=== PATIENT | male | born 1940 | race Caucasian/White ===

== ENCOUNTER 2019-10-10 13:02 | Inpatient (IN) | payer MEDICARE, OTHER ==
[~2019-10-10] VITALS: Ht 188 cm; Wt 87.4 kg
[~2019-10-10 13:02] MED LIST: ALDA50TA2 PO; AMLO10TA PO; AMLO10TA5 PO; CINN500C9 PO; FISH1CAP37 PO; HYDR-2541 PO; LIPI20TA PO; LISI-538 PO; METF500T13 PO; METO1TAB32 PO; METO1TAB63 PO; NACCAP PO; SAW500CA9 PO; SERT-138 PO; UBID100C6 PO; VITA200015 PO; VITA500T17 PO; VITAMIN C PO; ZYLO300T6 PO; [UNRECOGNIZED DRUG - CODE] PO
[2019-10-10 14:00] LABS: BASO % 0.5 % (0.0-1.0); EOS # 0.1 10^3/uL (0.0-0.5); EOS % 0.8 % (0.0-3.0); HEMATOCRIT 41.6 % (42.0-52.0); HEMOGLOBIN 13.9 g/dl (13.5-17.5); LYMPH # 1.1 10^3/uL (1.5-5.0); LYMPH % 16.7 % (24.0-44.0); MEAN CORPUSCULAR HGB CONC 33.4 g/dl (32.0-36.5); MEAN CORPUSCULAR VOLUME 92.9 fl (80.0-96.0); MONO # 0.7 10^3/uL (0.0-0.8); MONO % 10.3 % (0.0-5.0); NEUTROPHILS # 4.6 10^3/uL (1.5-8.5); NEUTROPHILS % 71.5 % (36.0-66.0); PLATELET COUNT, AUTOMATED 121 10^3/uL (150-450); RED BLOOD COUNT 4.48 10^6/uL (4.30-6.10); WHITE BLOOD COUNT 6.4 10^3/uL (4.0-10.0)
[2019-10-10 14:11] LABS: INR 1.3; PROTHROMBIN TIME 15.9 SECONDS (11.8-14.0)
[2019-10-10 14:12] LABS: PARTIAL THROMBOPLASTIN TIME 35.8 SECONDS (25.0-38.4)
--- NOTE | 2019-10-10 14:34 | REP ---
CHEST, TWO VIEWS: Two views of the chest are performed. There is cardiomegaly. There is small bilateral pleural effusions with some mild bibasilar atelectasis/infiltrate. There is calcification and tortuosity of the thoracic aorta. The mediastinal silhouette is otherwise unremarkable. There are degenerative changes of the spine. IMPRESSION: Moderate cardiomegaly. Small bilateral pleural effusions with mild adjacent bibasilar atelectasis/infiltrate. Electronically Signed by Buzz Hensley MD 10/10/2019 07:53 P
[2019-10-10 14:36] LABS: ALBUMIN 3.7 GM/DL (3.2-5.2); ALT/SGPT 33 U/L (12-78); BILIRUBIN,DIRECT 0.6 MG/DL (0.0-0.2); BILIRUBIN,TOTAL 1.9 MG/DL (0.2-1.0); BLOOD UREA NITROGEN 27 MG/DL (7-18); CARBON DIOXIDE LEVEL 30 MEQ/L (21-32); CHLORIDE LEVEL 105 MEQ/L (98-107); CK-MB VALUE MASS 2.6 NG/ML (<3.6); CPK CREATINE PHOSPHOKINASE 87 U/L (39-308); CREATININE FOR GFR 1.19 MG/DL (0.70-1.30); FREE T4 1.36 NG/DL (0.76-1.46); GLOMERULAR FILTRATION RATE > 60.0 (>42); GLUCOSE, FASTING 114 MG/DL (70-100); LIPASE 83 U/L (73-393); MB/CK RELATIVE INDEX 2.99 (< OR =4); NT-PRO BNP 10490 PG/ML (<450); SODIUM LEVEL 143 MEQ/L (136-145); TOTAL PROTEIN 6.8 GM/DL (6.4-8.2); TROPONIN I 0.69 NG/ML (< 0.10)
[2019-10-10] MEDS ORDERED: ASPI-1 PO (14:51)
[2019-10-10] MEDS ORDERED: CVS50CAP PO (14:51)
[2019-10-10] MEDS ORDERED: MAGN400C PO (14:51)
--- NOTE | 2019-10-10 15:04 | REP ---
Bilateral lower extremity Duplex Doppler venous ultrasound: Real time compression and duplex Doppler interrogation of the bilateral lower extremity deep venous system is performed. Bilaterally, the common femoral, superficial femoral and popliteal veins are fully compressible with transducer pressure and demonstrate normal spontaneous and phasic flow, without evidence of deep venous thrombosis. Impression: No evidence of deep venous thrombosis of the bilateral lower extremity femoral popliteal venous system. A right popliteal cyst measures 3.5 x 1.4 x 2.1 cm. Electronically Signed by Buzz Hensley MD 10/10/2019 02:55 P
[2019-10-10 15:30] LABS: MAGNESIUM LEVEL 2.6 MG/DL (1.8-2.4)
[2019-10-10] MEDS ORDERED: FUROSEMIDE 40MG/4ML VIAL (J1940) IV ONE (15:30)
[2019-10-10] MEDS ORDERED: GLUCOSE 4GM CHEW TABLET PO PRN (16:00)
[2019-10-10] MEDS ORDERED: DEXTROSE 50% 50 ML SYRINGE IV PRN (16:00)
[2019-10-10] MEDS ORDERED: GLUCAGON INJ 1MG VIAL SC PRN (16:00)
[2019-10-10] MEDS ORDERED: ZYLO300T6 PO (16:09)
[2019-10-10] MEDS ORDERED: DOCU-129 PO (16:09)
[2019-10-10] MEDS ORDERED: AMLO10TA5 PO (16:09)
[2019-10-10] MEDS ORDERED: HYDR25TAB PO (16:09)
[2019-10-10] MEDS ORDERED: COEN100T PO (16:09)
[2019-10-10] MEDS ORDERED: CINN500C15 PO (16:09)
[2019-10-10] MEDS ORDERED: SERT-138 PO (16:09)
[2019-10-10] MEDS ORDERED: MAGN400T2 PO (16:09)
[2019-10-10] MEDS ORDERED: SM S160C PO (16:09)
[2019-10-10] MEDS ORDERED: METF-839 PO ×2 (16:09)
[2019-10-10] MEDS ORDERED: ASCO500T PO (16:09)
[2019-10-10] MEDS ORDERED: FISH1000 PO (16:09)
--- NOTE | 2019-10-10 16:20 | HPEPDOC ---
General Date of Admission Oct 10, 2019 at 15:48 Date of Service: Oct 10, 2019 Chief Complaint The patient is a 78-year-old male Who presented to the hospital with complaints of shortness of breath History of Present Illness Patient is a 78-year-old male with a PMHx of HTN, A. fib (not on anticoagulation), Bradycardia (suspected to be 2/2 sick sinus syndrome, refused PM in 2014), DM2, DLP, Hx of CVA, Depression, and Brain abscess () and Gout who presented to the hospital with worsening shortness of breath. Patient reports that hes been experiencing year, shortness of breath. However, has worsened after he has run out of medication refills. Patient reports that he lives alone and does not have the ability to care for himself appropriately. Patient has reported worsening lower extremity swelling with some skin breakdown that has occurred. Patient denies any chest pain or palpitations. He denies any significant cough, any recent fevers or chills. Patient has not had a history of a heart attack or stent placements in the past. Patient was advised that in 2014, he would require a pacemaker for sick sinus syndrome. However, he had refused the procedure. At that time. Currently patient denies nausea, vomiting, abdominal pain. He does report some constipation, reports difficulty with urination but denies any burning. Patient reports his appetite is poor and is unaware of any changes in his weight. Home Medications Scheduled Allopurinol (Zyloprim) 300 Mg Tablet, 300 MG PO DAILY, (Reported) Amlodipine Besylate (Amlodipine Besylate) 10 Mg Tablet, 10 MG PO DAILY, (Reported) Ascorbic Acid (Ascorbic Acid) 500 Mg Tablet, 500 MG PO BID, (Reported) Cinnamon Bark (Cinnamon) 500 Mg Capsule, 500 MG PO BID, (Reported) Hydrochlorothiazide (Hydrochlorothiazide) 25 Mg Tablet, 25 MG PO DAILY, (Reported) Magnesium Oxide (Magnesium Oxide) 400 Mg Tablet, 400 MG PO BID, (Reported) Metformin HCl (Metformin HCl) 500 Mg Tablet, 1,000 MG PO BID, (Reported) AM/HS Metformin HCl (Metformin HCl) 500 Mg Tablet, 500 MG PO DAILY, (Reported) NOONTIME [place]-3 Fatty Acids/Fish Oil (Fish Oil 1,000 mg Capsule) 1 Each Capsule, 1,000 MG PO BID, (Reported) [place] (Saw Thurston) 160 Mg Capsule, 160 MG PO DAILY, (Reported) Sertraline HCl (Sertraline HCl) 100 Mg Tablet, 100 MG PO DAILY, (Reported) Ubidecarenone (Coenzyme Q10) 100 Mg Tablet, 100 MG PO DAILY, (Reported) Scheduled PRN Docusate Sodium (Stool Softener) 100 Mg Capsule, 100 MG PO BID PRN for CONSTIPATION, (Reported) Allergies Coded Allergies: No Known Allergies (Unverified , 07/20/14) Past Medical History Medical History HTN, A. fib (not on anticoagulation), Bradycardia (suspected to be 2/2 sick sinus syndrome, refused PM in 2014), DM2, DLP, Hx of CVA, Depression, and Brain abscess () and Gout Surgical History Patient has reported brain surgery 4 in the Appendectomy Family History - Family history was reviewed and is currently noncontributory to current hospitalization Social History - Denies the use of alcohol, tobacco or illicit drugs - Denies recent travel or sick contacts - [place] - Patient reports that he is unable to care for himself reports that he does not have access to a bathroom - Occupation; retired [employer] Review of Systems Other systems 10 point review of systems complete, all negative otherwise stated in HPI Vital Signs - Vitals: BP 140/60, HR 46, RR 20, Sat 98%RA, Temp 98.8F - General: Lying in bed, No acute distress, Speaking in full sentences, AAOx3 - HEENT: NC, AT, PERRLA, EOMI - CVS: Bradycardic, +S1S2 - Lungs: Fair air entry bilaterally, No appreciable wheezing / rales / rhonchi - Abdomen: Soft, Non-distended, Non-tender - Extremities: 1-2+ pitting edema on top of chronic venous stasis skin changes, No calf tenderness - Neuro: No focal motor or sensory deficit - Skin: No visible rashes Laboratory Data Labs 24H Laboratory Tests 2 10/10/19 13:42: 10/10/19 13:46: 10/10/19 13:47: Immature Granulocyte % (Auto) 0.2, Neutrophils (%) (Auto) 71.5H, Lymphocytes (%) (Auto) 16.7L, Monocytes (%) (Auto) 10.3H, Eosinophils (%) (Auto) 0.8, Basophils (%) (Auto) 0.5, Neutrophils # (Auto) 4.6, Lymphocytes # (Auto) 1.1L, Monocytes # (Auto) 0.7, Eosinophils # (Auto) 0.1, Basophils # (Auto) 0.0, Nucleated Red Blood Cells % (auto) 0.0, Prothrombin Time 15.9H, Prothromb Time International Ratio 1.30, Activated Partial Thromboplast Time 35.8, Anion Gap 8, Glomerular Filtration Rate > 60.0, Calcium Level 9.0, Magnesium Level 2.6H, Total Bilirubin 1.9H, Direct Bilirubin 0.6H, Aspartate Amino Transf (AST/SGOT) 15, Alanine Aminotransferase (ALT/SGPT) 33, Alkaline Phosphatase 124H, Total Creatine Kinase 87, Creatine Kinase MB 2.6, Creatine Kinase MB Relative Index 2.99, Troponin I 0.69H, SN-Xsg-O-Type Natriuretic Peptide 39914X, Total Protein 6.8, Albumin 3.7, Albumin/Globulin Ratio 1.2, Lipase 83, Thyroid Stimulating Hormone (TSH) 1.980, Free Thyroxine 1.36 CBC/BMP Laboratory Tests 10/10/19 13:47 Plan / VTE VTE Prophylaxis Ordered?: Yes Plan Plan Worsening shortness of breath - likely 2/2 decompensated systolic and diastolic CHF - Patient reports that hes unable to care for himself at home - Patient does not have a primary care provider and has been going to urgent care for medication refills - Has reported progressive shortness of breath over the duration of 1 year - Physical does reveal evidence of fluid overload - [place] [address] - ECHO from 2015: EF 40%, impaired diastolic function, moderate pulmonary HTN, - CXR 10/09: Moderate cardiomegaly. Small bilateral pleural effusions with mild adjacent bibasilar atelectasis/infiltrate. - Vascular US 10/09: No evidence of deep venous thrombosis of the bilateral lower extremity femoral popliteal venous system. A right popliteal cyst measures 3.5 x 1.4 x 2.1 cm. - Will get repeat ECHO - c/w Strict ins/outs, daily weights, fluid restriction of 2000 cc - Will give single dose of Furosemide 40 IV - Will start entresto - Consulted cardiology, Dr. Chambers Symptomatic bradycardia - Patient denies any chest pain or palpitations - Patient does appear to be bradycardic with heart rate between 40s and 60s - EKG was reviewed and does reveal an irregular heart rhythm, ventricular rate of 61; evidence of T-wave inversions in AvL, V1,2,3 - Troponin on admission of 0.69; will trend troponins - Will get ECHO - Discussed with cardiology, Dr. Chambers, about potential pacemaker placement; w ill be on consultation Thrombocytopenia - Platelet count at baseline does appear to be low based on medical records from 2014 - No evidence of bleeding HTN - BP well controlled - Will start entresto - Hold HCTZ, Amlodipine A. fib - Currently rate is bradycardic - Has not been on rate control medications as an outpatient - Not on full anticoagulation in the past for reported fall risk DM2 - Will check A1c - Will start ISS DLP - c/w Coenzyme Q10 Hx of CVA - Currently not on any antiplatelet therapy or statins Depression - c/w Sertraline Brain abscess () Gout - c/w Allopurinol DVT prophylaxis - Will start Heparin ALEAH GARCIA MD Oct 10, 2019 16:20
[2019-10-10 16:21] LABS: CHOLESTEROL LEVEL 130 MG/DL (<200); CHOLESTEROL RISK RATIO 3.095 (<5); HDL CHOLESTEROL 42 MG/DL (>40); LDL CHOLESTEROL 78 MG/DL (<100); NON-HDL-C 88 MG/DL; TRIGLYCERIDES LEVEL 48 MG/DL (<150)
[2019-10-10 16:25] LABS: HEMOGLOBIN A1c 6.7 %
[2019-10-10] MEDS: HumaLOG INSULIN (NovoLOG) PER UNIT SC SCH (17:30)
[2019-10-10 17:35] LABS: CK-MB VALUE MASS 2.4 NG/ML (<3.6); MB/CK RELATIVE INDEX 3.33 (< OR =4); TROPONIN I 0.61 NG/ML (< 0.10)
[2019-10-10 17:45] VITALS: BP 164/86
[2019-10-10] MEDS ORDERED: SLF 3 ML SYR IV PRN (18:00)
--- NOTE | 2019-10-10 18:11 | ECGEPIP ---
[facility] - ED Test Date: 2019-10-10 Pat Name: KATRIN PEDROZA Department: Room: - Gender: Male [employer]: JPatrice : 1940 Requested By: PENNY Ellis Order Number: [id number] Reading MD: Milvia Cedeno Measurements Intervals [place] Rate: 61 P: WI: 0 QRS: 116 QRSD: 198 T: -69 QT: 557 QTc: 564 Interpretive Statements SUSPECT ATRIAL FIBRILLATION ABERRANT CONDUCTION/PVC MARKED RIGHT AXIS DEVIATION RIGHT BUNDLE BRANCH BLOCK MARKED ST DEPRESSION, CONSIDER SUBENDOCARDIAL INJURY Electronically Signed on 10-10-2019 18:10:41 EDT by Milvia Cedeno
[2019-10-10 20:00] VITALS: BP 134/79
[2019-10-10 20:45] VITALS: BP 112/60
[2019-10-10] MEDS ORDERED: HumaLOG INSULIN (NovoLOG) PER UNIT SC SCH (21:00)
[2019-10-10] MEDS ORDERED: OMEGA-3 1000MG CAPSULE PO SCH (21:00)
[2019-10-10] MEDS: HEPARIN SOD (PORCINE) 5000UNITS/ML VIAL (J1644 PER 1000UNITS) SC SCH (21:11)
[2019-10-10] MEDS: SLF 3 ML SYR IV SCH (21:12)
[2019-10-10] MEDS: ENTRESTO 24-26MG TABLET (SACUBITRIL/VALSARTAN) PO SCH (21:49)
[2019-10-10 22:27] LABS: CK-MB VALUE MASS 2.1 NG/ML (<3.6); MB/CK RELATIVE INDEX 2.53 (< OR =4); TROPONIN I 0.64 NG/ML (< 0.10)
--- NOTE | 2019-10-10 23:41 | ECHO ---
DATE OF PROCEDURE: 10/10/2019 REFERRING PHYSICIAN: Dr. Michelle Cabrales INDICATION: Localized edema, unspecified. HEIGHT: 187 cm WEIGHT: 88 kg 2D MEASUREMENTS: Ventricular septum: 1.05 cm Posterior wall: 1.21 cm Left ventricle diastole: 7.55 cm Aortic annulus: 2.2 cm Aortic root: 4.4 cm Left atrium: 4.7 cm DOPPLER MEASUREMENTS: Moderate aortic regurgitation. No aortic stenosis. Aortic valve velocity: 86.2 cm/s LVOT velocity: 80.9 cm/s LVOT VTI: 16.6 cm Moderate mitral regurgitation. No mitral stenosis. Moderate tricuspid regurgitation. Estimated right ventricle systolic pressure: At least 67 mmHg assuming a pressure of at least 20 mmHg. No pulmonic regurgitation. DESCRIPTION: Rhythm was atrial fibrillation with a slow ventricular response and appearance of left bundle branch block-type morphology. This was a 2D, M-mode, color flow Doppler, and pulse wave Doppler examination and included mitral annular tissue Doppler. CONCLUSIONS: 1. Severely dilated left ventricle with eccentric left ventricle hypertrophy (mild increased thickness of the ventricular septum). Severe global LV hypokinesis and paradoxical septal motion. Severe reduction in overall LV systolic function. Left ventricular ejection fraction (LVEF) 15% by visual assessment. Appearance of low cardiac output. 2. Appearance of a mildly dilated right ventricle with right ventricle hypertrophy and moderately severe global hypokinesis of right ventricle contraction and right ventricular (RV) systolic function. Mild right atrial dilatation. 3. Mild aortic valve sclerosis of a 3-cusp aortic valve. Moderate aortic regurgitation. 4. Structurally normal appearing mitral leaflets. Moderate tricuspid regurgitation. 5. Severe left atrial dilatation. 6. Mild dilatation of the aortic root at the level of the sinuses of Valsalva (4.4 cm). 7. Bilateral pleural effusions. 8. Structurally normal appearing tricuspid leaflets. Moderate tricuspid regurgitation. Severe elevation of estimated right ventricle systolic pressure (at least 67 mmHg). 9. 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 Suggestive of elevated central venous pressure of at least 20 mmHg.
[2019-10-11] VITALS: BP 120/64
[2019-10-11] MEDS: FUROSEMIDE 40MG/4ML VIAL (J1940) IV SCH ×5 (00:21→15:10)
[2019-10-11 04:00] VITALS: BP 135/71
[2019-10-11] MEDS: HEPARIN SOD (PORCINE) 5000UNITS/ML VIAL (J1644 PER 1000UNITS) SC SCH ×2 (05:17→14:17)
[2019-10-11] MEDS: SLF 3 ML SYR IV SCH ×2 (05:18→14:17)
[2019-10-11 05:59] LABS: BASO % 0.4 % (0.0-1.0); EOS # 0.1 10^3/uL (0.0-0.5); EOS % 1.8 % (0.0-3.0); HEMATOCRIT 43.5 % (42.0-52.0); HEMOGLOBIN 14.2 g/dl (13.5-17.5); LYMPH # 1.6 10^3/uL (1.5-5.0); LYMPH % 21.7 % (24.0-44.0); MEAN CORPUSCULAR HEMOGLOBIN 30.1 pg (27.0-33.0); MEAN CORPUSCULAR HGB CONC 32.6 g/dl (32.0-36.5); MEAN CORPUSCULAR VOLUME 92.2 fl (80.0-96.0); MONO # 0.8 10^3/uL (0.0-0.8); MONO % 10.5 % (0.0-5.0); NEUTROPHILS # 4.7 10^3/uL (1.5-8.5); NEUTROPHILS % 65.2 % (36.0-66.0); PLATELET COUNT, AUTOMATED 136 10^3/uL (150-450); RED BLOOD COUNT 4.72 10^6/uL (4.30-6.10); WHITE BLOOD COUNT 7.2 10^3/uL (4.0-10.0)
[2019-10-11 06:27] LABS: BLOOD UREA NITROGEN 24 MG/DL (7-18); CALCIUM LEVEL 8.9 MG/DL (8.8-10.2); CARBON DIOXIDE LEVEL 33 MEQ/L (21-32); CHLORIDE LEVEL 102 MEQ/L (98-107); CREATININE FOR GFR 1.22 MG/DL (0.70-1.30); GLOMERULAR FILTRATION RATE > 60.0 (>42); GLUCOSE, FASTING 124 MG/DL (70-100); MAGNESIUM LEVEL 2.1 MG/DL (1.8-2.4); POTASSIUM SERUM 3.6 MEQ/L (3.5-5.1); SODIUM LEVEL 141 MEQ/L (136-145)
[2019-10-11 08:00] VITALS: BP 123/60
[2019-10-11] MEDS ORDERED: allopurinoL 300 MG TAB PO SCH (09:00)
[2019-10-11] MEDS ORDERED: SERTRALINE 100 MG TAB PO SCH (09:00)
[2019-10-11] MEDS ORDERED: SPIRONOLACTONE 25 MG TAB PO SCH (09:00)
[2019-10-11] MEDS ORDERED: CO-ENZYME Q10 50 MG CAP PO SCH (09:00)
[2019-10-11] MEDS ORDERED: ASPIRIN 81 MG ENTERIC TAB PO SCH (09:00)
[2019-10-11] MEDS: ENTRESTO 24-26MG TABLET (SACUBITRIL/VALSARTAN) PO SCH (09:16)
[2019-10-11] MEDS: HumaLOG INSULIN (NovoLOG) PER UNIT SC SCH ×2 (09:17→12:00)
--- NOTE | 2019-10-11 10:58 | IPNPDOC ---
Text Note Date of Service The patient was seen on 10/11/19. NOTE Subjective: Patient is a 78-year-old male with a PMHx of HTN, A. fib (not on anticoagulation), Bradycardia (suspected to be 2/2 sick sinus syndrome, refused PM in 2014), DM2, DLP, Hx of CVA, Depression, and Brain abscess () and Gout who presented to the hospital with worsening shortness of breath. Patient reports that hes been experiencing year, shortness of breath. However, has worsened after he has run out of medication refills. Patient reports that he lives alone and does not have the ability to care for himself appropriately. Patient has reported worsening lower extremity swelling with some skin breakdown that has occurred. Patient was admitted to the hospitalist service for further evaluation and treatment. Patient was seen and examined at the bedside. Patient reports that his lower extremity swelling has been better. He denies any chest pain, palpitations, nausea, vomiting, abdominal pain, diarrhea or burning with urination. Objective: Vitals (See below) General: Lying in bed, appears comfortable, AAOx3 HEENT: NC, AT CVS: Bradycardic, +S1S2 Lungs: Fair air entry b/l, no appreciable wheezing / rhonchi / crackles Abdomen: Soft, ND, NT Extremities: 1+ pitting edema on chronic venous stasis changes, - Calf tenderness Assessment and plan: Worsening shortness of breath - likely 2/2 decompensated systolic (EF 15%) and diastolic CHF 2/2 end stage CHF - Patient reports that his breathing is relatively fine at rest - Physical does reveal evidence of fluid overload; lower extremity do reveal some improvement of edema - [place] [address] - ECHO 10/09: EF 15%, moderate AR, moderate TR, elevated CVP - CXR 10/09: Moderate cardiomegaly. Small bilateral pleural effusions with mild adjacent bibasilar atelectasis/infiltrate. - Vascular US 10/09: No evidence of deep venous thrombosis of the bilateral lower extremity femoral popliteal venous system. A right popliteal cyst measures 3.5 x 1.4 x 2.1 cm. - Will get repeat ECHO - c/w Strict ins/outs, daily weights, fluid restriction of 2000 cc; has remained negative fluid balance - c/w diuresis to optimize volume status - Discussed with Dr. Chambers; patient is not a candidate to receive a pacemaker and is likely an end-stage congestive heart failure - Consulted Cardiology; Dr. Sadler Bradycardia - likely 2/2 SSS; not a candidate for PM - Patient does not report any chest pain or palpitations - EKG was reviewed and does reveal an irregular heart rhythm, ventricular rate of 61; evidence of T-wave inversions in AvL, V1,2,3 - Troponins have remained stable - Discussed with Dr. Chambers; patient is not a candidate to receive a pacemaker and is likely an end-stage congestive heart failure - Discussed code status with patient; patient has voiced that he will be DNR / DNI; MOLST form updated to reflect this change - Palliative care consult placed Thrombocytopenia - Platelet count at baseline does appear to be low based on medical records from 2014 - No evidence of bleeding HTN - BP well controlled - c/w entresto - s/p HCTZ, Amlodipine A. fib - Currently rate is bradycardic - Has not been on rate control medications as an outpatient - Not on full anticoagulation in the past for reported fall risk - Will start ASA 81 DM2 - A1c of 6.7 - c/w ISS DLP - c/w Coenzyme Q10 Hx of CVA - Currently not on any antiplatelet therapy or statins Depression - c/w Sertraline Brain abscess () Gout - c/w Allopurinol DVT prophylaxis - c/w Heparin VS,Fishbone, I+O VS, Fishbone, I+O Laboratory Tests 10/10/19 13:47 10/11/19 05:31 Vital Signs Date Time Temp Pulse Resp B/P (MAP) Pulse Ox O2 Delivery O2 Flow Rate FiO2 10/11/19 08:00 97.0 50 18 123/60 (81) 96 Room Air I&O- Last 24 Hours up to 6 AM 10/11/19 06:00 Intake Total 370 ml Output Total 2850 ml Balance -2480 ml ALEAH GARCIA MD Oct 11, 2019 10:58
[2019-10-11 12:00] VITALS: BP 128/68
[2019-10-11] MEDS ORDERED: ENTR1TAB PO (14:23)
[2019-10-11] MEDS ORDERED: ALDA25TA2 PO (14:23)
[2019-10-11] MEDS ORDERED: HEPA500011 SC (14:23)
[2019-10-11] MEDS ORDERED: FURO80VL IV (14:23)
[2019-10-11] MEDS ORDERED: ASPI81TAEC PO (14:23)
[2019-10-11] MEDS ORDERED: INSUHUMDS SC ×2 (14:23)
--- NOTE | 2019-10-11 14:30 | DS.PDOC ---
Discharge Summary General Date of Admission Oct 10, 2019 at 15:48 Date of Discharge 10/11/2019 Discharge Summary PROCEDURES PERFORMED DURING STAY: [None]. ADMITTING DIAGNOSES / DISCHARGE DIAGNOSES: Worsening shortness of breath - likely 2/2 decompensated systolic (EF 15%) and diastolic CHF 2/2 end stage CHF Bradycardia - likely 2/2 SSS Thrombocytopenia HTN A. fib DM2 DLP Hx of CVA Depression Brain abscess () Gout DVT prophylaxis COMPLICATIONS/CHIEF COMPLAINT: Shortness of breath HISTORY OF PRESENT ILLNESS: Patient is a 78-year-old male with a PMHx of HTN, A. fib (not on anticoagulation), Bradycardia (suspected to be 2/2 sick sinus syndrome, refused PM in 2014), DM2, DLP, Hx of CVA, Depression, and Brain abscess () and Gout who presented to the hospital with worsening shortness of breath. Patient reports that hes been experiencing year, shortness of breath. However, has worsened after he has run out of medication refills. Patient reports that he lives alone and does not have the ability to care for himself appropriately. Patient has reported worsening lower extremity swelling with some skin breakdown that has occurred. Patient was admitted to the hospitalist service for further evaluation and treatment. HOSPITAL COURSE: Worsening shortness of breath - likely 2/2 decompensated systolic (EF 15%) and diastolic CHF 2/2 end stage CHF - Patient reports that his breathing is relatively fine at rest - Physical does reveal evidence of fluid overload; lower extremity do reveal some improvement of edema - [place] [address] - ECHO 10/09: EF 15%, moderate AR, moderate TR, elevated CVP - CXR 10/09: Moderate cardiomegaly. Small bilateral pleural effusions with mild adjacent bibasilar atelectasis/infiltrate. - Vascular US 10/09: No evidence of deep venous thrombosis of the bilateral lower extremity femoral popliteal venous system. A right popliteal cyst measures 3.5 x 1.4 x 2.1 cm. - c/w Strict ins/outs, daily weights, fluid restriction of 2000 cc; has remained negative fluid balance (since admission -3485 net balance) - c/w diuresis to optimize volume status - After discussion of case with Dr. Sadler, Cardiology; patient be transferred to [facility] for cardiac evaluation and possible AICD/pacemaker placement Bradycardia - likely 2/2 SSS - Patient does not report any chest pain or palpitations - EKG was reviewed and does reveal an irregular heart rhythm, ventricular rate of 61; evidence of T-wave inversions in AvL, V1,2,3 - Troponins have remained stable - Discussed code status with patient; patient has voiced that he will be DNR / DNI; MOLST form updated to reflect this change - After discussion of case with Dr. Sadler, Cardiology; patient be transferred to [facility] for cardiac evaluation and possible AICD/pacemaker placement Thrombocytopenia - Platelet count at baseline does appear to be low based on medical records from 2014 - No evidence of bleeding HTN - BP well controlled - c/w Entresto - s/p HCTZ, Amlodipine A. fib - Currently rate is bradycardic / irregular - Has not been on rate control medications as an outpatient - Not on full anticoagulation in the past for reported fall risk - c/w ASA 81 DM2 - A1c of 6.7 - c/w ISS DLP - c/w Coenzyme Q10 Hx of CVA - Currently not on any antiplatelet therapy or statins Depression - c/w Sertraline Brain abscess () Gout - c/w Allopurinol DVT prophylaxis - c/w Heparin DISCHARGE MEDICATIONS: Please see below. ALLERGIES: Please see below. PHYSICAL EXAMINATION ON DISCHARGE: Vitals (See below) General: Lying in bed, appears comfortable, AAOx3 HEENT: NC, AT CVS: Bradycardic, +S1S2 Lungs: Fair air entry b/l, auscultation does not reveal evidence of crackles, wheezing or rhonchi Abdomen: Abdomen is soft without distention or tenderness Extremities: Lower extremity still reveal 1+ pitting edema on top of chronic venous stasis, - Calf tenderness LABORATORY DATA: Please see below. ACTIVITY: [As tolerated]. DISCHARGE PLAN / DISPOSITION: Transfer to [facility] in [place] for interventional cardiology evaluation Remain compliant with treatment plan and medications Return to the ER if you experience any problems DISCHARGE CONDITION: [Stable]. TIME SPENT ON DISCHARGE: 35 minutes. Vital Signs/I&Os Vital Signs Date Time Temp Pulse Resp B/P (MAP) Pulse Ox O2 Delivery O2 Flow Rate FiO2 10/11/19 12:00 97.0 55 20 128/68 (88) 100 Room Air I&O- Last 24 Hours up to 6 AM 10/11/19 06:00 Intake Total 370 ml Output Total 2850 ml Balance -2480 ml Laboratory Data Labs 24H Laboratory Tests 2 10/10/19 16:49: Total Creatine Kinase 72, Creatine Kinase MB 2.4, Creatine Kinase MB Relative Index 3.33, Troponin I 0.61H 10/10/19 18:13: Bedside Glucose (Misc Panel) 105 10/10/19 21:08: Bedside Glucose (Misc Panel) 156H 10/10/19 21:50: Total Creatine Kinase 83, Creatine Kinase MB 2.1, Creatine Kinase MB Relative Index 2.53, Troponin I 0.64H 10/11/19 05:31: Immature Granulocyte % (Auto) 0.4, Neutrophils (%) (Auto) 65.2, Lymphocytes (%) (Auto) 21.7L, Monocytes (%) (Auto) 10.5H, Eosinophils (%) (Auto) 1.8, Basophils (%) (Auto) 0.4, Neutrophils # (Auto) 4.7, Lymphocytes # (Auto) 1.6, Monocytes # (Auto) 0.8, Eosinophils # (Auto) 0.1, Basophils # (Auto) 0.0, Nucleated Red Blood Cells % (auto) 0.0, Anion Gap 6L, Glomerular Filtration Rate > 60.0, Calcium Level 8.9, Magnesium Level 2.1 10/11/19 12:43: Bedside Glucose (Misc Panel) 105 CBC/BMP Laboratory Tests 10/11/19 05:31 FSBS Laboratory Tests Test 10/10/19 18:13 10/10/19 21:08 10/11/19 12:43 Range/Units Bedside Glucose (Misc Panel) 105 156 105 83-110 MG/DL Discharge Medications Scheduled Allopurinol (Zyloprim) 300 Mg Tablet, 300 MG PO DAILY, (Reported) Aspirin (Aspirin EC) 81 Mg Tablet.dr, 81 MG PO DAILY Furosemide (Furosemide) 10 Mg/1 Ml Vial, 40 MG IV Q4H Heparin Sodium,Porcine (Heparin Sodium) 5,000 Unit/1 Ml Vial, 5,000 UNITS SC Q8H Insulin Human Lispro (Humalog) 100 Unit/1 Ml Vial, 0 UNITS SC AC Insulin Human Lispro (Humalog) 100 Unit/1 Ml Vial, 0 UNITS SC QHS Magnesium Oxide (Magnesium Oxide) 400 Mg Tablet, 400 MG PO BID, (Reported) [place]-3 Fatty Acids/Fish Oil (Fish Oil 1,000 mg Capsule) 1 Each Capsule, 1,000 MG PO BID, (Reported) Sacubitril/Valsartan (Entresto 24 mg-26 mg Tablet) 1 Each Tablet, 1 TAB PO BID Sertraline HCl (Sertraline HCl) 100 Mg Tablet, 100 MG PO DAILY, (Reported) Spironolactone (Aldactone) 25 Mg Tablet, 25 MG PO QAM Ubidecarenone (Coenzyme Q10) 100 Mg Tablet, 100 MG PO DAILY, (Reported) Scheduled PRN Docusate Sodium (Stool Softener) 100 Mg Capsule, 100 MG PO BID PRN for CONSTIPATION, (Reported) Allergies Coded Allergies: No Known Allergies (Unverified , 07/20/14) ALEAH GARCIA MD Oct 11, 2019 14:30
[2019-10-11 16:00] VITALS: BP 135/63
== END 2019-10-11 16:49 | disposition short-term general hospital (02) | DRG 308 ==
LOC: M ED 13:02 → M ED INP 15:48 → ENRESERV 16:02 → M PCU 17:35
PROVIDERS: ADMIT Internal Medicine; ATTEND Internal Medicine
DX: I49.5 Sick sinus syndrome (principal); I50.43 Acute on chronic combined systolic (congestive) and diastolic (congestive) heart failure; I48.91 Unspecified atrial fibrillation; I11.0 Hypertensive heart disease with heart failure; E11.9 Type 2 diabetes mellitus without complications; E78.5 Hyperlipidemia, unspecified; F32.9 Major depressive disorder, single episode, unspecified; D69.6 Thrombocytopenia, unspecified; M10.9 Gout, unspecified; Z66 Do not resuscitate; Z86.73 Personal history of transient ischemic attack (TIA), and cerebral infarction without residual deficits; Z79.84 Long term (current) use of oral hypoglycemic drugs; Z79.899 Other long term (current) drug therapy; Z90.49 Acquired absence of other specified parts of digestive tract

== ENCOUNTER 2019-10-23 15:11 | Inpatient (IN) | payer MEDICARE ==
[~2019-10-23] VITALS: Ht 185.4 cm; Wt 75.0 kg
[~2019-10-23 15:11] MED LIST changes: +ALDA25TA2 PO; +ASCO500T PO; +ASPI-1 PO; +ASPI81TAEC PO; +CINN500C15 PO; +COEN100T PO; +CVS50CAP PO; +DOCU-129 PO; +ENTR1TAB PO; +FISH1000 PO; +FURO80VL IV; +HEPA500011 SC; +HYDR25TAB PO; +INSUHUMDS SC; +MAGN400C PO; +MAGN400T2 PO; +METF-839 PO; +SM S160C PO
[2019-10-23] MEDS ORDERED: LISI-542 PO (18:05)
[2019-10-23] MEDS ORDERED: ATOR40TA75 PO (18:05)
[2019-10-23] MEDS ORDERED: METF500T13 PO ×2 (18:05→22:59)
[2019-10-23] MEDS ORDERED: FURO40TA2 PO (18:05)
[2019-10-23 19:43] LABS: BASO % 0.4 % (0.0-1.0); EOS # 0.1 10^3/uL (0.0-0.5); EOS % 0.8 % (0.0-3.0); HEMATOCRIT 39.7 % (42.0-52.0); HEMOGLOBIN 12.9 g/dl (13.5-17.5); LYMPH # 1.4 10^3/uL (1.5-5.0); LYMPH % 19.2 % (24.0-44.0); MEAN CORPUSCULAR HEMOGLOBIN 30.2 pg (27.0-33.0); MEAN CORPUSCULAR HGB CONC 32.5 g/dl (32.0-36.5); MONO # 0.7 10^3/uL (0.0-0.8); MONO % 9.7 % (0.0-5.0); NEUTROPHILS # 4.9 10^3/uL (1.5-8.5); NEUTROPHILS % 69.5 % (36.0-66.0); PLATELET COUNT, AUTOMATED 156 10^3/uL (150-450); RED BLOOD COUNT 4.27 10^6/uL (4.30-6.10); WHITE BLOOD COUNT 7.1 10^3/uL (4.0-10.0)
[2019-10-23 20:21] LABS: ALBUMIN 3.3 GM/DL (3.2-5.2); ALT/SGPT 28 U/L (12-78); BILIRUBIN,DIRECT 0.5 MG/DL (0.0-0.2); BILIRUBIN,TOTAL 1.1 MG/DL (0.2-1.0); BLOOD UREA NITROGEN 31 MG/DL (7-18); CALCIUM LEVEL 8.7 MG/DL (8.8-10.2); CARBON DIOXIDE LEVEL 30 MEQ/L (21-32); CHLORIDE LEVEL 104 MEQ/L (98-107); CK-MB VALUE MASS 1.8 NG/ML (<3.6); CPK CREATINE PHOSPHOKINASE 54 U/L (39-308); CREATININE FOR GFR 1.19 MG/DL (0.70-1.30); ETHYL ALCOHOL (ETHANOL) < 0.003 % (0.000-0.010); GLOMERULAR FILTRATION RATE > 60.0 (>42); GLUCOSE, FASTING 149 MG/DL (70-100); MB/CK RELATIVE INDEX 3.33 (< OR =4); POTASSIUM SERUM 4.6 MEQ/L (3.5-5.1); SODIUM LEVEL 140 MEQ/L (136-145); TOTAL PROTEIN 6.5 GM/DL (6.4-8.2); TROPONIN I 0.75 NG/ML (< 0.10)
--- NOTE | 2019-10-23 20:24 | REPVR ---
PROCEDURE INFORMATION: Exam: CT Head Without Contrast Exam date and time: 10/23/2019 7:55 PM Age: 78 years old Clinical indication: Altered mental status/memory loss; Confusion or disorientation TECHNIQUE: Imaging protocol: Computed tomography of the head without contrast. Radiation optimization: All CT scans at this facility use at least one of these dose optimization techniques: automated exposure control; mA and/or kV adjustment per patient size (includes targeted exams where dose is matched to clinical indication); or iterative reconstruction. COMPARISON: CT Head without contrast 07/20/2014 7:27 AM FINDINGS: Brain: Subacute to chronic infarct of the left cerebellum. Chronic infarct of the left temporal lobe. Ventricles: Normal. No ventriculomegaly. Bones/joints: Unremarkable. No acute fracture. Sinuses: Visualized sinuses are unremarkable. No fluid levels. Mastoid air cells: Partial opacification of bilateral mastoid air cells. Vasculature: Vascular calcifications. Soft tissues: Unremarkable. 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 Electronically signed by: Narinder Rios On 10/23/2019 20:23:45 PM
[2019-10-23] MEDS: HumaLOG INSULIN (NovoLOG) PER UNIT SC SCH (21:00)
[2019-10-23] MEDS ORDERED: GLUCAGON INJ 1MG VIAL SC PRN (22:00)
[2019-10-23] MEDS ORDERED: DEXTROSE 50% 50 ML SYRINGE IV PRN (22:00)
[2019-10-23] MEDS ORDERED: GLUCOSE 4GM CHEW TABLET PO PRN (22:00)
[2019-10-23] MEDS ORDERED: ACETAMINOPHEN TAB 650MG DOSE (2X325MG) PO PRN (22:00)
--- NOTE | 2019-10-23 22:12 | HPEPDOC ---
General Date of Admission 10/23/2019 Date of Service: Oct 23, 2019 Chief Complaint The patient is a 78-year-old male Was brought to emergency room by police after hes found to be unable to care for himself History of Present Illness Patient is a 78-year-old male with a PMHx of HTN, A. fib (not on anticoagulation), Bradycardia (suspected to be 2/2 sick sinus syndrome, refused PM in 2014), DM2, DLP, Hx of CVA, Depression, and Brain abscess () and Gout who presented to the emergency room brought in by police after visiting public health nurse found that he was dirty with blood in stool. Was recently admitted to the hospital on 10/09, for bradycardia and congestive heart failure. . He was subsequently transferred to [facility] on 10/10 after cardiology had recommended that he get an AICD. As per the patients, he was evaluated by cardiology and received a cardiac catheterization and does not appear that he has received any stenting. Patient ultimately did not receive an AICD. Patient appears to be describing a life vest device that he had refused. Currently, he is does not want to have any other workup of his heart. Patients left [facility] 3 days ago AGAINST MEDICAL ADVICE. Patient was evaluated by psychiatry in the emergency room who has reported that he does not have the capacity to care for himself. Currently, patient is alert, oriented 3. He does not appear to be any acute distress. Denies nausea, vomiting, chest pain, cough, fever, chills, abdominal pain, constipation, diarrhea, or urinary discomfort. Patient does report some shortness of breath that has been there chronically. Patient is unsure of any changes in his weight or appetite. Home Medications Scheduled Allopurinol (Zyloprim) 300 Mg Tablet, 300 MG PO DAILY, (Reported) Aspirin (Aspirin EC) 81 Mg Tablet.dr, 81 MG PO DAILY Atorvastatin Calcium (Atorvastatin Calcium) 40 Mg Tablet, 1 TAB PO DAILY, (Reported) Furosemide (Furosemide) 40 Mg Tablet, 1 TAB PO DAILY, (Reported) Lisinopril (Lisinopril) 5 Mg Tablet, 1 TAB PO DAILY, (Reported) Magnesium Oxide (Magnesium Oxide) 400 Mg Tablet, 400 MG PO BID, (Reported) Metformin HCl (Metformin HCl) 500 Mg Tablet, 2 TABS PO BID, (Reported) Sertraline HCl (Sertraline HCl) 100 Mg Tablet, 100 MG PO DAILY, (Reported) Spironolactone (Aldactone) 25 Mg Tablet, 25 MG PO QAM Scheduled PRN Docusate Sodium (Stool Softener) 100 Mg Capsule, 100 MG PO BID PRN for CONSTIPATION, (Reported) Allergies Coded Allergies: No Known Allergies (Unverified , 07/20/14) Past Medical History Medical History HTN, A. fib (not on anticoagulation), Bradycardia (suspected to be 2/2 sick sinus syndrome, refused PM in 2014), DM2, DLP, Hx of CVA, Depression, and Brain abscess () and Gout Surgical History Patient has reported brain surgery 4 in the Appendectomy Family History - Family history was reviewed and is currently noncontributory to current hospitalization Social History - Denies the use of alcohol, tobacco or illicit drugs - Denies recent travel or sick contacts - [place] - Patient reports that he is unable to care for himself reports that he does not have access to a bathroom - Occupation; retired [employer] Review of Systems Other systems 10 point review of systems complete, all negative otherwise stated in HPI Vital Signs - Vitals: BP 138/68, HR 65, RR 20, Sat 99%RA, Temp 96.8F - General: Lying in bed, No acute distress, Speaking in full sentences, AAOx2 (not to time) - HEENT: NC, AT, PERRLA - CVS: Bradycardic, +S1S2 - Lungs: Fair air entry bilaterally, No appreciable wheezing / rales / rhonchi - Abdomen: Soft, Non-distended, Non-tender - Extremities: No lower extremity edema, No calf tenderness - Neuro: No focal motor or sensory deficit - Skin: No visible rashes Laboratory Data Labs 24H Laboratory Tests 2 10/23/19 19:20: Immature Granulocyte % (Auto) 0.4, Neutrophils (%) (Auto) 69.5H, Lymphocytes (%) (Auto) 19.2L, Monocytes (%) (Auto) 9.7H, Eosinophils (%) (Auto) 0.8, Basophils (%) (Auto) 0.4, Neutrophils # (Auto) 4.9, Lymphocytes # (Auto) 1.4L, Monocytes # (Auto) 0.7, Eosinophils # (Auto) 0.1, Basophils # (Auto) 0.0, Nucleated Red Blood Cells % (auto) 0.0, Anion Gap 6L, Glomerular Filtration Rate > 60.0, Lactic Acid Level 1.4, Calcium Level 8.7L, Total Bilirubin 1.1H, Direct Bilirubin 0.5H, Aspartate Amino Transf (AST/SGOT) 22, Alanine Aminotransferase (ALT/SGPT) 28, Alkaline Phosphatase 123H, Ammonia < 10, Total Creatine Kinase 54, Creatine Kinase MB 1.8, Creatine Kinase MB Relative Index 3.33, Troponin I 0.75H, Total Protein 6.5, Albumin 3.3, Albumin/Globulin Ratio 1.0, Thyroid Stimulating Hormone (TSH) 3.090, Ethyl Alcohol Level < 0.003 CBC/BMP Laboratory Tests 10/23/19 19:20 Plan / VTE VTE Prophylaxis Ordered?: Yes Plan Plan Confusion / Inability to care for self - possibly 2/2 CVA - possibly 2/2 atrial fibrillation - Patient was brought to the emergency room by police after he was found to be covered in blood and stool by public health nurse - Patient appears to be oriented to person, place but not to time - CT head 10/22: Subacute to chronic infarct of the left cerebellum. - Attempted to reach out to healthcare proxy, Jae Simons; has not answered - Patient was seen and evaluated by psychiatry in the emergency room; was reported to have lack of capacity - Patient will likely need placement to jail - c/w ASA 81 and Atorvastatin - Will get MRI / MRA / Carotid duplex US - Juan Manuel start Eliquis - Will need to have re-evaluation with Psychiatry Shortness of breath - likely 2/2 compensated systolic and diastolic CHF - Patient appears comfortable and saturating well on room air - Physical without any signs of fluid overload - ECHO 10/09: EF 15%, moderate AR, moderate TR, elevated CVP - CXR 10/22: Does not appear to show significant fluid overload, though show massive cardiomegaly - Will continue with home diuretics; Bradycardia - Patient denies any chest pain or palpitations - Patient does appear to be bradycardic with heart rate between 40s and 60s - Patient has had a slight elevation of troponins since 2014; likely 2/2 demand ischemia - Patient has refused pacemaker, AICD, and LifeVest - Patient does not wish to pursue any further aggressive measures for his heart HTN - BP well controlled - c/w A. fib - Currently rate is bradycardic - Not requiring rate control medications - c/w ASA for now; will start Eliquis (re: see above) DM2 - Will start ISS DLP - c/w Coenzyme Q10 Hx of CVA - Currently not on any antiplatelet therapy or statins Depression - c/w Sertraline Brain abscess () Gout - c/w Allopurinol DVT prophylaxis - Will start full anticoagulation with ALEAH Hernández MD Oct 23, 2019 22:12
[2019-10-23] MEDS ORDERED: ASPI81TA26 PO (22:58)
[2019-10-23] MEDS ORDERED: SPIR-10 PO (22:58)
[2019-10-23] MEDS ORDERED: COMMENTS (23:00)
--- NOTE | 2019-10-24 00:26 | REPVR ---
PROCEDURE INFORMATION: Exam: US Duplex Bilateral Extracranial Arteries Exam date and time: 10/23/2019 10:41 PM Age: 78 years old Clinical indication: Other: Stroke TECHNIQUE: Imaging protocol: Real-time Duplex ultrasound scan of the bilateral carotid and vertebral arteries combining lópez scale, color Doppler and spectral waveform analysis. Bilateral exam. COMPARISON: CT Head without contrast 10/23/2019 7:52 PM FINDINGS: Right common carotid artery: Unremarkable. No occlusion or stenosis. Waveforms are normal. Right internal carotid artery: Unremarkable. No occlusion or stenosis. Waveforms are normal. Right ICA/CCA ratio: Normal at 0.9 Right external carotid artery: No stenosis in the origin. Right vertebral artery: Unremarkable. Antegrade flow. Left common carotid artery: Unremarkable. No occlusion or stenosis. Waveforms are normal. Left internal carotid artery: Mild plaque at the origin. Mildly elevated peak systolic velocity of 137 cm/s. Normal waveforms. Left ICA/CCA ratio: Normal at 1.5 Left external carotid artery: Mild plaque at the origin. No stenosis in the origin. Left vertebral artery: Unremarkable. Antegrade flow. IMPRESSION: No significant stenosis or occlusion. REFERENCES: SRU CRITERIA. The degree of internal carotid artery stenosis is based on criteria defined by the Society of Radiologists in Ultrasound (SRU). Normal is no stenosis. Mild is less than 50% stenosis. Moderate is 50-69% stenosis. Severe is greater than 69% stenosis to near occlusion. Near occlusion is a markedly narrowed lumen. Total occlusion is no detectable patent lumen. Electronically signed by: Bill Ogden On 10/24/2019 00:25:41 AM
[2019-10-24 01:10] VITALS: BP 128/63
[2019-10-24] MEDS: APIXABAN 5 MG TAB (ELIQUIS) PO SCH ×3 (01:38→20:50)
--- NOTE | 2019-10-24 01:44 | ECGEPIP ---
[facility] - ED Test Date: 2019-10-23 Pat Name: KATRIN PEDROZA Department: Room: - Gender: Male Equine Pharmacology Technician: erika : 1940 Requested By: PENNY Ellis Order Number: [id number] Reading MD: Regan Shirley Measurements Intervals Chavies Rate: 51 P: NH: 0 QRS: -70 QRSD: 157 T: 103 QT: 454 QTc: 420 Interpretive Statements ATRIAL FIBRILLATION WITH SLOW VENTRICULAR RESPONSE Left anterior fascicular block Right bundle branch block Left ventricular hypertrophy by aVL criteria Rate decreased from tracing done 10-10-19 Electronically Signed on 10-24-2019 1:44:06 EDT by Regan Shirley
[2019-10-24 03:06] LABS: BASO % 0.3 % (0.0-1.0); EOS # 0.1 10^3/uL (0.0-0.5); EOS % 1.7 % (0.0-3.0); HEMATOCRIT 39.3 % (42.0-52.0); HEMOGLOBIN 12.7 g/dl (13.5-17.5); LYMPH # 1.2 10^3/uL (1.5-5.0); LYMPH % 19.5 % (24.0-44.0); MEAN CORPUSCULAR HEMOGLOBIN 30.2 pg (27.0-33.0); MEAN CORPUSCULAR HGB CONC 32.3 g/dl (32.0-36.5); MEAN CORPUSCULAR VOLUME 93.6 fl (80.0-96.0); MONO # 0.9 10^3/uL (0.0-0.8); MONO % 13.4 % (0.0-5.0); NEUTROPHILS # 4.1 10^3/uL (1.5-8.5); NEUTROPHILS % 64.9 % (36.0-66.0); PLATELET COUNT, AUTOMATED 146 10^3/uL (150-450); WHITE BLOOD COUNT 6.4 10^3/uL (4.0-10.0)
[2019-10-24 03:38] LABS: BLOOD UREA NITROGEN 28 MG/DL (7-18); CALCIUM LEVEL 8.4 MG/DL (8.8-10.2); CARBON DIOXIDE LEVEL 33 MEQ/L (21-32); CHLORIDE LEVEL 105 MEQ/L (98-107); CK-MB VALUE MASS 1.8 NG/ML (<3.6); CPK CREATINE PHOSPHOKINASE 52 U/L (39-308); CREATININE FOR GFR 1.11 MG/DL (0.70-1.30); GLOMERULAR FILTRATION RATE > 60.0 (>42); GLUCOSE, FASTING 106 MG/DL (70-100); MAGNESIUM LEVEL 2.3 MG/DL (1.8-2.4); MB/CK RELATIVE INDEX 3.46 (< OR =4); POTASSIUM SERUM 4.2 MEQ/L (3.5-5.1); SODIUM LEVEL 141 MEQ/L (136-145); TROPONIN I 0.73 NG/ML (< 0.10)
[2019-10-24 06:00] VITALS: BP 118/59
--- NOTE | 2019-10-24 08:20 | REP ---
Clinical: Altered mental status. Comparison: 10/10/2019. Findings: Marked cardiomegaly is again noted. Previously identified basilar atelectasis and small pleural effusions appear to have resolved. The lung antoine demonstrate diffuse chronic interstitial changes. No focal consolidation, acute effusion, or pneumothorax. Skeletal structures are stable. Impression: Stable cardiomegaly. Previously noted basilar atelectasis and small pleural effusions resolved. No obvious new acute process. Electronically Signed by Javi Gonzales MD 10/24/2019 08:12 A
[2019-10-24] MEDS: ATORVASTATIN 20 MG TAB PO SCH (09:41)
[2019-10-24] MEDS: DOCUSATE SODIUM 100 MG CAP PO SCH ×2 (09:41→21:00)
[2019-10-24] MEDS: lisinopriL 5 MG TAB PO SCH (09:42)
[2019-10-24] MEDS: ASPIRIN 81 MG ENTERIC TAB PO SCH (09:42)
[2019-10-24] MEDS: SPIRONOLACTONE 25 MG TAB PO SCH (09:42)
[2019-10-24] MEDS: allopurinoL 300 MG TAB PO SCH (09:42)
[2019-10-24] MEDS: FUROSEMIDE 40 MG TAB PO SCH (09:42)
[2019-10-24] MEDS: SERTRALINE 100 MG TAB PO SCH (09:42)
[2019-10-24] MEDS: HumaLOG INSULIN (NovoLOG) PER UNIT SC SCH ×4 (09:45→21:00)
[2019-10-24 10:30] LABS: CK-MB VALUE MASS 1.5 NG/ML (<3.6); MB/CK RELATIVE INDEX 2.42 (< OR =4); TROPONIN I 0.8 NG/ML (< 0.10)
[2019-10-24 14:00] VITALS: BP 121/56
--- NOTE | 2019-10-24 20:39 | IPNPDOC ---
Date Seen The patient was seen on 10/24/19. Progress Note SUBJECTIVE: Patient upset when interviewed earlier today, wanted to go home. States that people are out to get him and his property. Says social workers won't "leave him alone". Concern remains with patient not having capacity to make medical decisions or care safely for himself. Will discuss with team. Patient has no complaints of chest pain, shortness of breath, n/v/d. Wound care consulted for lower ext wounds. OBJECTIVE: VITAL SIGNS: Please see below PHYSICAL EXAMINATION: CONSTITUTIONAL: No acute distress, resting comfortably, AAO x 3 EYES: PERRLA, EOM intact HENT, MOUTH: Normocephalic, atraumatic, moist mucous membranes NECK: SUPPLE, no JVD, no lymphadenopathy, no carotid bruit CV: bradycardic, Regular rhythm, S1S2 normal, no murmurs/rubs/gallops RESPIRATORY: Clear to auscultation bilaterally, no rales/rhonchi/wheezes GI: BS positive in 4 quadrants, soft, nontender, nondistended, no rebound or g uarding, no organomegaly : Deferred MUSCULOSKELETAL: Normal ROM. No cyanosis, clubbing, swelling, joint deformity, extremity edema INTEGUMENTARY: Stage II ulcers on right lower ext, clean, nonsuppurative, no fould smell. Well healing LLE wounds not needing dressings. Otherwise, intact, no rashes, no erythema NEUROLOGIC: Cranial Nerves II-XII are intact, no focal deficits PSYCHIATRIC: Mood and affect are normal CURRENT MEDICATIONS: Please see below LABORATORY DATA: Please see below IMAGING: No new imaging ASSESSMENT: 78 y/o M admitted for confusion with inability to care for self poss ibly 2/2 CVA. PLAN: 1. Confusion with inability to care for self possibly 2/[address] head + for subacute vs. chronic CVA cerebellus, cannot have MRI due to hardware. Patient is slightly confused today. Can tell me his name but cannot recall reason he is here, name of hospital. His healthcare proxy, his sonreji Simons will be attempted to be reached today. We will discuss whether or not patient will be ok to go home with him vs. placement. Patient was seen and evaluated by psychiatry in the emergency room; was reported to have lack of capacity. Will consult Psychiatry again to reevalute. 2. Shortness of breath likely 2/2 compensated systolic and diastolic CHF. Resolved. No SOB, saturating well on RA, no signs of fluid overload. ECHO 10/09: EF 15%, moderate AR, moderate TR, elevated CVP CXR 10/22: Does not appear to show significant fluid overload, though show massive cardiomegaly. C/w home diuretics 3. Bradycardia. Asymptomatic. Elevation of troponins since 2014; likely 2/2 d emand ischemia. Patient has refused pacemaker, AICD, and LifeVest. F/u most recent records from [facility], where he reportedly left AMA very recently. Patient does not wish to pursue any further aggressive measures for his heart 4. HTN. Stable. C/w home meds. 5. Atrial fibrillation. Currently rate is bradycardic. C/w ASA for now. Started on eliquis by admitter; however, if found to be unsteady on his feet (? recent cerebellar CVA) then d/c due to fall risk. 6. DM2. BS stable. C/w ISS 7. HLD. c/w Coenzyme Q10 8. Hx of CVA. Currently not on any antiplatelet therapy or statins. 9. Depression. C/w Sertraline 10. Gout. C/w Allopurinol 11. DVT prophylaxis . Eliquis. DISPOSITION: Will reach out to psychiatry to discuss case further. May reconsult them to reevaluate. Social work to reach out to his son. VS, I&O, 24H, Fishbone Vital Signs/I&O Vital Signs Date Time Temp Pulse Resp B/P (MAP) Pulse Ox O2 Delivery O2 Flow Rate FiO2 10/24/19 14:00 97.3 56 20 121/56 (77) 99 Room Air I&O- Last 24 Hours up to 6 AM 10/24/19 06:00 Intake Total 150 ml Output Total 0 ml Balance 150 ml Laboratory Data 24H LABS Laboratory Tests 2 10/24/19 01:30: Bedside Glucose (Misc Panel) 107 10/24/19 02:59: Immature Granulocyte % (Auto) 0.2, Neutrophils (%) (Auto) 64.9, Lymphocytes (%) (Auto) 19.5L, Monocytes (%) (Auto) 13.4H, Eosinophils (%) (Auto) 1.7, Basophils (%) (Auto) 0.3, Neutrophils # (Auto) 4.1, Lymphocytes # (Auto) 1.2L, Monocytes # (Auto) 0.9H, Eosinophils # (Auto) 0.1, Basophils # (Auto) 0.0, Nucleated Red Blood Cells % (auto) 0.0, Anion Gap 3L, Glomerular Filtration Rate > 60.0, Calci um Level 8.4L, Magnesium Level 2.3, Total Creatine Kinase 52, Creatine Kinase MB 1.8, Creatine Kinase MB Relative Index 3.46, Troponin I 0.73H 10/24/19 06:41: Bedside Glucose (Misc Panel) 132H 10/24/19 09:25: Total Creatine Kinase 62, Creatine Kinase MB 1.5, Creatine Kinase MB Relative Index 2.42, Troponin I 0.80H 10/24/19 12:08: Bedside Glucose (Misc Panel) 118H 10/24/19 16:30: Bedside Glucose (Misc Panel) 103 CBC/BMP Laboratory Tests 10/24/19 02:59 Current Medications Current Medications Medications (Trade) Dose Ordered Sig/Yola Route PRN Reason Start Time Stop Time Status Last Admin Dose Admin Acetaminophen (Tylenol Tab) 650 mg Q4H PRN PO PAIN OR FEVER 10/23/19 22:00 Allopurinol (Zyloprim) 300 mg DAILY PO 10/24/19 09:00 10/24/19 09:42 Apixaban (Eliquis) 5 mg BID PO 10/23/19 21:00 10/24/19 20:50 Aspirin (Ecotrin) 81 mg DAILY PO 10/24/19 09:00 10/24/19 09:42 Atorvastatin Calcium (Lipitor) 40 mg DAILY PO 10/24/19 09:00 10/24/19 09:41 Dextrose (Dextrose 50%) 25 ml ASDIRECTED PRN IV SEE LABEL COMMENTS 10/23/19 22:00 Docusate Sodium (Colace) 100 mg BID PO 10/24/19 09:00 10/24/19 09:41 Furosemide (Lasix) 40 mg DAILY PO 10/24/19 09:00 10/24/19 09:42 Glucagon (Glucagon) 1 mg ASDIRECTED PRN SC SEE LABEL COMMENTS 10/23/19 22:00 Glucose (Glucose) 16 GM ASDIRECTED PRN PO SEE LABEL COMMENTS 10/23/19 22:00 Home Med (Med Rec Complete!) ASDIRECTED XX 10/23/19 23:15 10/23/19 23:04 DC Insulin Human Lispro (HumaLOG INSULIN) SEE PROTOCOL TABLE AC SC 10/24/19 07:30 10/24/19 17:56 Insulin Human Lispro (HumaLOG INSULIN) SEE PROTOCOL TABLE QHS SC 10/23/19 21:00 Lisinopril (Prinivil) 5 mg DAILY PO 10/24/19 09:00 10/24/19 09:42 Sertraline HCl (Zoloft) 100 mg DAILY PO 10/24/19 09:00 10/24/19 09:42 Spironolactone (Aldactone) 25 mg QAM PO 10/24/19 09:00 10/24/19 09:42 Allergies Coded Allergies: No Known Allergies (Unverified , 07/20/14) Genny Flaherty MD Oct 24, 2019 20:39
[2019-10-24 22:00] VITALS: BP 121/73
[2019-10-25 06:00] VITALS: BP 142/60
[2019-10-25] MEDS: HumaLOG INSULIN (NovoLOG) PER UNIT SC SCH ×2 (07:30→12:42)
[2019-10-25] MEDS: SERTRALINE 100 MG TAB PO SCH (08:58)
[2019-10-25] MEDS: ASPIRIN 81 MG ENTERIC TAB PO SCH (08:58)
[2019-10-25] MEDS: FUROSEMIDE 40 MG TAB PO SCH (08:58)
[2019-10-25] MEDS: SPIRONOLACTONE 25 MG TAB PO SCH (08:58)
[2019-10-25] MEDS: DOCUSATE SODIUM 100 MG CAP PO SCH (08:58)
[2019-10-25] MEDS: allopurinoL 300 MG TAB PO SCH (08:58)
[2019-10-25] MEDS: APIXABAN 5 MG TAB (ELIQUIS) PO SCH (08:58)
[2019-10-25] MEDS: ATORVASTATIN 20 MG TAB PO SCH (08:58)
[2019-10-25 09:01] VITALS: BP 123/71
[2019-10-25] MEDS: lisinopriL 5 MG TAB PO SCH (09:01)
--- NOTE | 2019-10-25 13:46 | DS.PDOC ---
Discharge Summary General Date of Admission Oct 23, 2019 at 21:53 Date of Discharge 10/25/2019 Discharge Summary PROCEDURES PERFORMED DURING STAY: [None]. ADMITTING DIAGNOSES / DISCHARGE DIAGNOSES: Reported inability to care for self Subacute / Chronic CVA - possibly 2/2 atrial fibrillation Shortness of breath - likely 2/2 compensated systolic and diastolic CHF Bradycardia HTN A. fib DM2 DLP Hx of CVA Depression Brain abscess () Gout DVT prophylaxis COMPLICATIONS/CHIEF COMPLAINT: Brought in by police because of concern for health HISTORY OF PRESENT ILLNESS: Patient is a 78-year-old male with a PMHx of HTN, A. fib (not on anticoagulation), Bradycardia (suspected to be 2/2 sick sinus syndrome, refused PM in 2014), DM2, DLP, Hx of CVA, Depression, and Brain abscess () and Gout who presented to the emergency room brought in by police after visiting public health nurse found that he was dirty with blood in stool. Was recently admitted to the hospital on 10/09, for bradycardia and congestive heart failure. . He was subsequently transferred to [facility] on 10/10 after cardiology had recommended that he get an AICD. As per the patients, he was evaluated by cardiology and received a cardiac catheterization and does not appear that he has received any stenting. Patient ultimately did not receive an AICD. Patient appears to be describing a life vest device that he had refused. Currently, he is does not want to have any other workup of his heart. Patients left [facility] 3 days ago AGAINST MEDICAL ADVICE. Patient was evaluated by psychiatry in the ER and noted that the patient did not have capacity at that time to make decision. He was subsequently admitted to the hospitalist service for further evaluation and treatment. HOSPITAL COURSE: Reported inability to care for self - Patient was brought to the emergency room by police after he was found to be covered in blood and stool by public health nurse - Patient appears to be oriented to person, place and time - After extensive discussion with agent and healthcare proxy, Jaearpan Simons; patient is at his baseline level of functioning - Patient's son, Jae, reports that he will be living with his father for further assistance and does not want any public health services / nursing assistance at home - At this time, patient does have an understanding of what brought him to the hospital and is adamant that he will like to leave the hospital - He has capacity to make his own decision and after discussion with HCP, has social support at home - He does not appear to be a hazard to his own health or to others; has verbalized that he will continue to take the medications that have been prescribed - HCP has requested that [facility] not visit him for any additional assistance at home - Has refused PT evaluation Subacute / Chronic CVA - possibly 2/2 [address] fibrillation - [address] head 10/22: Subacute to chronic infarct of the left cerebellum. - Carotid Duplex 10/24: No significant stenosis or occlusion. - Patient had refused MRI and MRA - c/w ASA 81 and Atorvastatin - Discussed anticoagulation with Eliquis with Patient and Son; at this point, they have refused full anticoagulation and would like to continue with aspirin only - I have advised them the risks of continuing with aspirin alone, including additional strokes; patient and healthcare proxy have verbalized understanding Shortness of breath - likely 2/2 compensated systolic and diastolic CHF - Patient appears comfortable and saturating well on room air - Physical on admission without any signs of fluid overload - ECHO 10/09: EF 15%, moderate AR, moderate TR, elevated CVP - CXR 10/22: Does not appear to show significant fluid overload, though show massive cardiomegaly - c/w Furosemide Bradycardia - Patient denies any chest pain or palpitations - Patient does appear to be bradycardic with heart rate between 40s and 60s - Patient has had a slight elevation of troponins since 2014; likely 2/2 demand ischemia - Patient has refused pacemaker, AICD, and LifeVest - Patient does not wish to pursue any further aggressive measures for his heart - Discussed with healthcare proxy, Jae Simons; agrees with patient and does not want any further measures completed HTN - BP well controlled - c/w Lisinopril and Furosemide A. fib - Currently rate is bradycardic - Not requiring rate control medications - Will c/w ASA for now - Discussed anticoagulation with patient and healthcare proxy, Jae Simons - they have reported that they do not want to continue with any other medication; ASA only; I have advised them the risks of stroke. They have verbalized understanding DM2 - c/w ISS DLP - c/w Atorvastatin Hx of CVA - c/w ASA and Atorvastatin Depression - c/w Sertraline Brain abscess () Gout - c/w Allopurinol DVT prophylaxis - Discontinued Eliquis DISCHARGE MEDICATIONS: Please see below. ALLERGIES: Please see below. PHYSICAL EXAMINATION ON DISCHARGE: Full exam not completed as patient refused LABORATORY DATA: Please see below. ACTIVITY: [As tolerated]. DISCHARGE PLAN: Follow up with PCP within 7 days Remain compliant with treatment plan and medications Return to the ER if you experience any problems DISPOSITION: Home DISCHARGE CONDITION: [Stable]. TIME SPENT ON DISCHARGE: 35 minutes. Vital Signs/I&Os Vital Signs Date Time Temp Pulse Resp B/P (MAP) Pulse Ox O2 Delivery O2 Flow Rate FiO2 10/25/19 09:01 123/71 10/25/19 06:00 98.0 81 20 95 10/24/19 14:00 Room Air I&O- Last 24 Hours up to 6 AM 10/25/19 06:00 Intake Total 1230 ml Output Total 0 ml Balance 1230 ml Laboratory Data Labs 24H Laboratory Tests 2 10/24/19 16:30: Bedside Glucose (Misc Panel) 103 10/24/19 20:40: Bedside Glucose (Misc Panel) 71L 10/25/19 11:35: Bedside Glucose (Misc Panel) 311H FSBS Laboratory Tests Test 10/24/19 16:30 10/24/19 20:40 10/25/19 11:35 Range/Units Bedside Glucose (Misc Panel) 103 71 311 83-110 MG/DL Discharge Medications Scheduled Allopurinol (Zyloprim) 300 Mg Tablet, 300 MG PO DAILY, (Reported) Aspirin (Aspirin EC) 81 Mg Tablet.dr, 81 MG PO DAILY, (Reported) Atorvastatin Calcium (Atorvastatin Calcium) 40 Mg Tablet, 40 MG PO DAILY, (Reported) Furosemide (Furosemide) 40 Mg Tablet, 40 MG PO DAILY, (Reported) Lisinopril (Lisinopril) 5 Mg Tablet, 5 MG PO DAILY, (Reported) Magnesium Oxide (Magnesium Oxide) 400 Mg Tablet, 400 MG PO BID, (Reported) Metformin HCl (Metformin HCl) 500 Mg Tablet, 1,000 MG PO BID, (Reported) Metformin HCl (Metformin HCl) 500 Mg Tablet, 500 MG PO DAILY, (Reported) NOON Sertraline HCl (Sertraline HCl) 100 Mg Tablet, 100 MG PO DAILY, (Reported) Spironolactone (Spironolactone) 25 Mg Tablet, 25 MG PO DAILY, (Reported) Scheduled PRN Docusate Sodium (Stool Softener) 100 Mg Capsule, 100 MG PO BID PRN for CONSTIPATION, (Reported) Miscellaneous Medications [Comments] , (Reported) MED LIST MADE WITH EXTERNAL HISTORY AND LAST DISCHARGE ON 10/11/19. Allergies Coded Allergies: No Known Allergies (Unverified , 07/20/14) ALEAH GARCIA MD Oct 25, 2019 13:46
== END 2019-10-25 13:48 | disposition home or self-care (01) | DRG 65 ==
LOC: M ED 15:11 → M ED INP 21:53 → ENRESERV 10-24 → M MSPAV 10-24 01:07
PROVIDERS: ADMIT Internal Medicine; ATTEND Internal Medicine
DX: I63.542 Cerebral infarction due to unspecified occlusion or stenosis of left cerebellar artery (principal); I50.42 Chronic combined systolic (congestive) and diastolic (congestive) heart failure; L97.918 Non-pressure chronic ulcer of unspecified part of right lower leg with other specified severity; I11.0 Hypertensive heart disease with heart failure; I48.91 Unspecified atrial fibrillation; I49.5 Sick sinus syndrome; E11.622 Type 2 diabetes mellitus with other skin ulcer; E78.5 Hyperlipidemia, unspecified; F32.9 Major depressive disorder, single episode, unspecified; M10.9 Gout, unspecified; Z66 Do not resuscitate; Z79.82 Long term (current) use of aspirin; Z79.84 Long term (current) use of oral hypoglycemic drugs; Z79.899 Other long term (current) drug therapy